=== PATIENT | male | born 1970 | race Caucasian/White ===

== ENCOUNTER → 2020-04-14 | Outpatient (CLI) | payer OTHER ==
[~2020-04-14] MED LIST: CITA40TA4
== END ==
LOC: M LABSMTC 10:26
PROVIDERS: ATTEND Anesthesiology
DX: Z01.818 Encounter for other preprocedural examination (principal); Z20.828 Contact with and (suspected) exposure to other viral communicable diseases

== ENCOUNTER 2020-04-19 11:17 | Day surgery (SDC) | payer BC ==
[~2020-04-19] VITALS: Ht 182.9 cm; Wt 120.1 kg
[~2020-04-19 11:17] MED LIST changes: +LIDOCAINE 2% 100MG/5ML SDV (FOR ANES.) As Ordered ONE; +NS 1,000 ML IV ONE; +ROCURONIUM BROMIDE 50 MG/5 ML VIAL As Ordered ONE; +propofoL 200 MG/20 ML VIAL As Ordered ONE
--- NOTE | 2020-04-19 14:01 | ROOR ---
Patient Name: Alvaro Ford Procedure Date: 04/19/2020 1:22 PM Date of : 1970 Age: 49 Room: [facility] Gender: Male Note Status: Finalized Procedure: Colonoscopy Indications: High risk colon cancer surveillance: Personal history of colonic polyps Providers: Marshal ROSADO MD Referring MD: Matthias Krishnan Md Requesting Provider: Medicines: Monitored Anesthesia Care Complications: No immediate complications. Procedure: Pre-Anesthesia Assessment: - The heart rate, respiratory rate, oxygen saturations, blood pressure, adequacy of pulmonary ventilation, and response to care were monitored throughout the procedure. The Colonoscope was introduced through the anus and advanced to the terminal ileum, with identification of the appendiceal orifice and IC valve. The colonoscopy was performed without difficulty. The patient tolerated the procedure well. The quality of the bowel preparation was good. Findings: The perianal and digital rectal examinations were normal. Four semi-pedunculated polyps were found in the proximal transverse colon, mid transverse colon and ascending colon. The polyps were 6 to 9 mm in size. These polyps were removed with a cold snare. Resection and retrieval were complete. To prevent bleeding after the polypectomy, two hemostatic clips were successfully placed. There was no bleeding at the end of the procedure. Anal papilla(e) were hypertrophied. Small Internal Hemorrhoids. Impression: - Four 6 to 9 mm polyps in the proximal transverse colon, in the mid transverse colon and in the ascending colon, removed with a cold snare. Resected and retrieved. Clips were placed. - Anal papilla(e) were hypertrophied. - Small Internal Hemorrhoids. - The exam was otherwise normal to the cecum. Recommendation: - Repeat colonoscopy in 3 years for surveillance. Procedure Code(s): --- Professional --- 82419, Colonoscopy, flexible; with removal of tumor(s), polyp(s), or other lesion(s) by snare technique Diagnosis Code(s): --- Professional --- Z86.010, Personal history of colonic polyps K63.5, Polyp of colon K62.89, Other specified diseases of anus and rectum CPT copyright 2019 [employer]. All rights reserved. The codes documented in this report are preliminary and upon saddle lining stitcher review may be revised to meet current compliance requirements. Marshal Rosado MD Marshal ROSADO MD 04/19/2020 2:01:09 PM Electronically signed by Marshal ROSADO MD Number of Addenda: 0 Note Initiated On: 04/19/2020 1:22 PM Estimated Blood Loss: Estimated blood loss: none.
[2020-04-19 14:25] VITALS: BP 117/85
== END 2020-04-19 14:35 | disposition home or self-care (01) ==
LOC: M OPP 11:17
PROVIDERS: ATTEND Internal Medicine Gastroenterology
DX: Z12.11 Encounter for screening for malignant neoplasm of colon (principal); Z86.010 Personal history of colon polyps; D12.2 Benign neoplasm of ascending colon; D12.3 Benign neoplasm of transverse colon; K62.89 Other specified diseases of anus and rectum; K64.8 Other hemorrhoids; Z79.899 Other long term (current) drug therapy

== ENCOUNTER 2020-11-23 12:04 | Emergency (ER) | payer BC ==
[~2020-11-23] VITALS: Ht 182.9 cm; Wt 120.5 kg
[~2020-11-23 12:04] MED LIST changes: -LIDOCAINE 2% 100MG/5ML SDV (FOR ANES.) As Ordered ONE; -NS 1,000 ML IV ONE; -ROCURONIUM BROMIDE 50 MG/5 ML VIAL As Ordered ONE; -propofoL 200 MG/20 ML VIAL As Ordered ONE
[2020-11-23] MEDS ORDERED: KETOROLAC 30 MG/ML 1ML VIAL IV ONE (13:50)
[2020-11-23] MEDS ORDERED: NS 1,000 ML IV ONE (13:50)
[2020-11-23] MEDS ORDERED: ONDANSETRON 4MG/2ML VIAL IV ONE (13:50)
--- NOTE | 2020-11-23 14:19 | REP ---
INDICATION: R FLANK PAIN R/O UROLITHIASIS COMPARISON: None. TECHNIQUE: Helical scanning is acquired and 3 mm axial images were reformatted. Coronal and sagittal MPR images were generated and reviewed. 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 The lung bases are clear on axial CT images. There is mild diffuse fatty infiltration of the liver. The spleen is unremarkable. A small sliding-type hiatal hernia is seen. Normal adrenal glands are observed. No abnormality is noted in the pancreas. The gallbladder is unremarkable. There is moderate acute obstructive hydro nephrosis affecting the right kidney. There is extensive [place] renal, peripelvic, and [place] ureteral edema. However, I am not able to see an obstructing calculus. No bladder calculus is seen. Prostate and seminal vesicles are unremarkable. In the left kidney there are parapelvic cysts. No perinephric edema is seen around the left kidney. A noninflamed air-containing appendix is seen retrocecal. Small and large bowel loops are unremarkable. Seminal vesicles and prostate are normal. No bladder abnormality. IMPRESSION: There is moderate to marked hydronephrosis and hydroureter on the right with extensive perinephric and periureteral stand stranding. However, there is no discernible obstructing calculus. This may reflect recent stone passage. Possibly pyelo ureteral nephritis could explain the [place] nephric edema. There is mild diffuse fatty infiltration of the liver. Normal appendix is seen. Otherwise negative. <Electronically signed by Johnson Maldonado > 11/23/20 [id number]
[2020-11-23 14:33] LABS: BASO % 0.4 % (0.0-1.0); EOS # 0.1 10^3/uL (0.0-0.5); EOS % 1.3 % (0.0-3.0); HEMATOCRIT 40.8 % (42.0-52.0); HEMOGLOBIN 14.1 g/dl (13.5-17.5); LYMPH # 1.2 10^3/uL (1.5-5.0); LYMPH % 11.5 % (24.0-44.0); MEAN CORPUSCULAR HEMOGLOBIN 29.4 pg (27.0-33.0); MEAN CORPUSCULAR HGB CONC 34.6 g/dl (32.0-36.5); MEAN CORPUSCULAR VOLUME 85.2 fl (80.0-96.0); MONO # 1.2 10^3/uL (0.0-0.8); MONO % 11.8 % (2.0-8.0); NEUTROPHILS # 7.8 10^3/uL (1.5-8.5); NEUTROPHILS % 74.6 % (36.0-66.0); PLATELET COUNT, AUTOMATED 186 10^3/uL (150-450); RED BLOOD COUNT 4.79 10^6/uL (4.30-6.10); WHITE BLOOD COUNT 10.4 10^3/uL (4.0-10.0)
[2020-11-23] MEDS ORDERED: MORPHINE 4 MG/ML 1ML VIAL/SYRINGE (J2270) IV PRN (14:35)
[2020-11-23 14:53] LABS: ALBUMIN 3.6 GM/DL (3.2-5.2); BILIRUBIN,DIRECT 0.3 MG/DL (0.0-0.2); TOTAL PROTEIN 6.7 GM/DL (6.4-8.2)
[2020-11-23 15:52] LABS: GC DNA AMPLIFICATION NEGATIVE (NEGATIVE)
[2020-11-23 16:02] VITALS: BP 129/69
--- NOTE | 2020-11-24 06:36 | ED PDOC ---
Post-Departure Follow-Up dr rodriguez faxed formal report of ct abd/p for fu Miriam Soliz MD Nov 24, 2020 06:36
== END 2020-11-23 16:06 | disposition home or self-care (01) ==
LOC: M ED 12:04
DX: R93.5 Abnormal findings on diagnostic imaging of other abdominal regions, including retroperitoneum (principal); D64.9 Anemia, unspecified; D72.829 Elevated white blood cell count, unspecified; R10.9 Unspecified abdominal pain; R11.0 Nausea
CPT/HCPCS: 74176; 80047; 80076; 81001; 83690; 85025; 87661; 96361; 96374; 96375; 99284; J1885; J2405

== ENCOUNTER 2023-10-08 08:13 | Day surgery (SDC) | payer BC ==
[~2023-10-08] VITALS: Ht 182.9 cm; Wt 111.1 kg
[~2023-10-08 08:13] MED LIST changes: -CITA40TA4; +CITA40TA7 PO
[2023-10-08] MEDS: NS 1,000 ML IV ONE (08:25)
[2023-10-08 09:21] VITALS: TEMP 98
[2023-10-08 09:36] VITALS: BP 141/64; O2SAT 95
== END 2023-10-08 09:46 | disposition home or self-care (01) ==
LOC: M OPP 08:13
PROVIDERS: ATTEND Internal Medicine Gastroenterology
DX: Z12.11 Encounter for screening for malignant neoplasm of colon (principal); Z86.010 Personal history of colon polyps; D12.3 Benign neoplasm of transverse colon; K63.5 Polyp of colon; K64.8 Other hemorrhoids; K57.30 Diverticulosis of large intestine without perforation or abscess without bleeding; K76.0 Fatty (change of) liver, not elsewhere classified; E78.00 Pure hypercholesterolemia, unspecified; Z79.899 Other long term (current) drug therapy